=== PATIENT | female | born 1980 | race Caucasian/White ===

== ENCOUNTER → 2016-05-26 | Outpatient (CLI) | payer BC | LOC: MHCPAIN 09:02 | DX: G89.29 Other chronic pain (principal); R10.2 Pelvic and perineal pain; G62.89 Other specified polyneuropathies | CPT/HCPCS: G0463 ==

== ENCOUNTER → 2016-07-21 | Outpatient (CLI) | payer BC | LOC: MHCPAIN 09:56 | DX: G89.29 Other chronic pain (principal); M79.2 Neuralgia and neuritis, unspecified; R10.30 Lower abdominal pain, unspecified | CPT/HCPCS: G0463 ==

== ENCOUNTER → 2016-12-25 | Outpatient (CLI) | payer BC | END | disposition home or self-care (01) | LOC: COL.RAD 13:24 | DX: S73.102A Unspecified sprain of left hip, initial encounter (principal); M76.02 Gluteal tendinitis, left hip | CPT/HCPCS: A9585; Q9967 ==

== ENCOUNTER → 2017-11-22 | Outpatient (CLI) | payer BC | LOC: COL.RAD 11-14 08:30 | DX: M25.552 Pain in left hip (principal); Z98.890 Other specified postprocedural states | CPT/HCPCS: A9585; Q9967 ==

== ENCOUNTER → 2018-07-30 | Outpatient (CLI) | payer BC | LOC: COL.RAD 10:30 | DX: M25.552 Pain in left hip (principal) | CPT/HCPCS: Q9967 ==

== ENCOUNTER → 2020-10-08 | Outpatient (CLI) | payer BC | LOC: MC.RAD 13:03 | DX: Z12.31 Encounter for screening mammogram for malignant neoplasm of breast (principal) ==

== ENCOUNTER → 2021-04-04 | Outpatient (CLI) | payer BC | LOC: COL.RAD 07:05 | DX: R10.11 Right upper quadrant pain (principal) ==

== ENCOUNTER → 2021-04-11 | Outpatient (CLI) | payer BC | LOC: COL.RAD 09:29 | DX: R10.11 Right upper quadrant pain (principal); R11.0 Nausea | CPT/HCPCS: A9537; J2805 ==